=== PATIENT | male | born 1985 | race Caucasian/White ===

== ENCOUNTER 2020-03-20 02:18 | Emergency (ER) | payer BC ==
[2020-03-20] MEDS ORDERED: Ondansetron 4 MG/2 ML SDV IVPUSH ONE (02:56)
[2020-03-20] MEDS ORDERED: Sodium Chloride 0.9% 10 ML Syringe FLUSH PRN (02:56)
[2020-03-20] MEDS ORDERED: Famotidine 20 MG/2 ML SDV IVPUSH ONE (02:56)
--- NOTE | 2020-03-20 02:57 | EDM.PDOC ---
ED HPI GENERAL MEDICAL PROBLEM - General Chief Complaint: Gastrointestinal Problem Stated Complaint: NAUSEA CHILLS DEHYDRATED Time Seen by Provider: 03/20/20 02:36 Source of Information: Reports: Patient, RN Notes Reviewed - History of Present Illness INITIAL COMMENTS - FREE TEXT/NARRATIVE: 34 yr old male with nausea, chills, dry mouth and diarrhea that started about 3 hrs ago. Does not think he ate anything bad. No vomiting. No cough, sore throat or difficulty breathing. - Related Data Allergies Allergy/AdvReac Type Severity Reaction Status Date / Time amoxicillin Allergy Hives Verified 03/20/20 02:27 Home Meds: Home Meds . [No Known Home Meds] 03/20/20 [History] Past Medical History HEENT History: Reports: Allergic Rhinitis Respiratory History: Reports: Asthma Social & Family History - Tobacco Use Tobacco Use Status *Q: Current Every Day Tobacco User Years of Tobacco use: 22 Packs/Tins Daily: 0.5 - Recreational Drug Use Recreational Drug Use: No ED ROS GENERAL - Review of Systems Review Of Systems: See Below Constitutional: Reports: Chills. Denies: Fever HEENT: Denies: Rhinitis, Throat Pain Respiratory: Denies: Shortness of Breath, Cough Cardiovascular: Denies: Chest Pain GI/Abdominal: Reports: Diarrhea, Nausea. Denies: Abdominal Pain, Vomiting Musculoskeletal: Reports: No Symptoms Skin: Reports: No Symptoms Neurological: Reports: Dizziness. Denies: Headache ED EXAM, GI/ABD - Physical Exam Exam: See Below General Appearance: Alert, Anxious Head: Atraumatic Neck: Supple Respiratory/Chest: No Respiratory Distress, Lungs Clear, Normal Breath Sounds Cardiovascular: Regular Rate, Rhythm GI/Abdominal Exam: Soft, Non-Tender. No: Guarding Extremities: Normal Inspection, Normal Range of Motion Neurological: Alert, Oriented, No Motor/Sensory Deficits Psychiatric: Anxious Skin Exam: Warm, Dry, Normal Color, No Rash Course - Vital Signs Last Recorded V/S: Last Vital Signs Temp 98.1 F 03/20/20 02:28 Pulse 69 03/20/20 02:28 Resp 17 03/20/20 02:28 BP 130/76 03/20/20 02:28 Pulse Ox 96 03/20/20 02:28 - Orders/Labs/Meds Orders: Active Orders 24 hr Category Date Time Status Peripheral IV Care [RC] . DIRECTED Care 03/20/20 02:57 Active Sodium Chloride 0.9% [Saline Flush] Med 03/20/20 02:56 Active 10 ml FLUSH ASDIRECTED PRN Peripheral IV Insertion Adult [OM.PC] Stat Oth 03/20/20 02:56 Ordered Medication Orders Sodium Chloride (Saline Flush) 10 ml FLUSH ASDIRECTED PRN PRN Reason: Keep Vein Open Last Admin: 03/20/20 03:27 Dose: 10 ml Documented by: ROLY Labs: Laboratory Tests 03/20/20 03/20/20 03/20/20 Range/Units 03:16 03:45 03:45 WBC 6.90 (4.23-9.07) K/mm3 RBC 4.76 (4.63-6.08) M/mm3 Hgb 14.9 (13.7-17.5) gm/dl Hct 43.0 (40.1-51.0) % MCV 90.3 (79.0-92.2) fl MCH 31.3 (25.7-32.2) pg MCHC 34.7 (32.2-35.5) g/dl RDW Std Deviation 40.2 (35.1-43.9) fL Plt Count 338 H (163-337) K/mm3 MPV 8.6 L (9.4-12.3) fl Neut % (Auto) 70.5 H (34.0-67.9) % Lymph % (Auto) 20.3 L (21.8-53.1) % [place] % (Auto) 7.2 (5.3-12.2) % Eos % (Auto) 1.6 (0.8-7.0) Baso % (Auto) 0.4 (0.1-1.2) % Neut # (Auto) 4.86 (1.78-5.38) K/mm3 Lymph # (Auto) 1.40 (1.32-3.57) K/mm3 [place] # (Auto) 0.50 (0.30-0.82) K/mm3 Eos # (Auto) 0.11 (0.04-0.54) K/mm3 Baso # (Auto) 0.03 (0.01-0.08) K/mm3 Sodium 138 (136-145) mEq/L Potassium 4.0 (3.5-5.1) mEq/L Chloride 102 (98-107) mEq/L Carbon Dioxide 29 (21-32) mEq/L Anion Gap 11.0 (5-15) BUN 5 L (7-18) mg/dL Creatinine 0.9 (0.7-1.3) mg/dL Est Cr Clr Drug Dosing 105.56 mL/min Estimated GFR (MDRD) > 60 (>60) mL/min BUN/Creatinine Ratio 5.6 L (14-18) Glucose 100 (74-106) mg/dL Calcium 9.1 (8.5-10.1) mg/dL Total Bilirubin 0.4 (0.2-1.0) mg/dL AST 15 (15-37) U/L ALT 24 (16-63) U/L Alkaline Phosphatase 86 (46-116) U/L Total Protein 7.3 (6.4-8.2) g/dl Albumin 3.9 (3.4-5.0) g/dl Globulin 3.4 gm/dL Albumin/Globulin Ratio 1.2 (1-2) SARS-CoV-2 RNA (RODY) Negative (NEGATIVE) Meds: Medications Generic Name Dose Route Start Last Admin Trade Name Freq PRN Reason Stop Dose Admin Sodium Chloride 10 ml 03/20/20 02:56 03/20/20 03:27 Saline Flush FLUSH 10 ml ASDIRECTED PRN Administration Keep Vein Open Discontinued Medications Generic Name Dose Route Start Last Admin Trade Name Freq PRN Reason Stop Dose Admin Famotidine 20 mg 03/20/20 02:56 03/20/20 03:27 Pepcid IVPUSH 03/20/20 02:57 20 mg ONETIME ONE Administration Ondansetron HCl 4 mg 03/20/20 02:56 03/20/20 03:26 Zofran IVPUSH 03/20/20 02:57 4 mg ONETIME ONE Administration - Re-Assessments/Exams Free Text/Narrative Re-Assessment/Exam: 03/20/20 04:50. labs did come back normal. Discharge instr. as documented. Departure - Departure Time of Disposition: 04:39 Disposition: Home, Self-Care 01 Condition: Fair Clinical Impression: GERD (gastroesophageal reflux disease) Qualifiers: Esophagitis presence: without esophagitis Qualified Code(s): K21.9 - Gastro- esophageal reflux disease without esophagitis Diarrhea Qualifiers: Diarrhea type: unspecified type Qualified Code(s): R19.7 - Diarrhea, unspecified - Discharge Information Instructions: Diarrhea, Adult, Gastroesophageal Reflux Disease, Adult Referrals: PCP,None [Primary Care Provider] - Forms: ED Department Discharge Additional Instructions: Your covid screen did come back negative. Your blood count and chemistries were normal. Continue prilosec as prescribed. Clear liquids until this afternoon. Than careful bland diet as tolerated. Follow up with your regular provider if not better within 1 to 2 days as expected. Sepsis Event Note (ED) - Evaluation Sepsis Screening Result: No Definite Risk - Focused Exam Vital Signs: Vital Signs Temp Pulse Resp BP Pulse Ox 03/20/20 02:28 98.1 F 69 17 130/76 96 - My Orders Last 24 Hours: My Active Orders 03/20/20 02:56 Sodium Chloride 0.9% [Saline Flush] 10 ml FLUSH ASDIRECTED PRN Peripheral IV Insertion Adult [OM.PC] Stat 03/20/20 02:57 Peripheral IV Care [RC] . DIRECTED - Assessment/Plan Last 24 Hours: My Active Orders 03/20/20 02:56 Sodium Chloride 0.9% [Saline Flush] 10 ml FLUSH ASDIRECTED PRN Peripheral IV Insertion Adult [OM.PC] Stat 03/20/20 02:57 Peripheral IV Care [RC] . DIRECTED
== END 2020-03-20 04:55 | disposition home or self-care (01) ==
LOC: JD.ED 02:18
DX: K21.9 Gastro-esophageal reflux disease without esophagitis (principal); R19.7 Diarrhea, unspecified; Z20.828 Contact with and (suspected) exposure to other viral communicable diseases; J45.909 Unspecified asthma, uncomplicated; F17.210 Nicotine dependence, cigarettes, uncomplicated; Z88.1 Allergy status to other antibiotic agents
CPT/HCPCS: 36415; 80053; 85025; 87635; 96374; 96375; 99284; J2405; J3490; U0002

== ENCOUNTER 2020-08-26 23:40 | Emergency (ER) | payer BC ==
[2020-08-27] MEDS ORDERED: Lactated Ringers 1,000 ML IV ONE (01:07)
[2020-08-27] MEDS ORDERED: Sodium Chloride 0.9% 10 ML Syringe FLUSH PRN ×2 (01:07→02:02)
[2020-08-27] MEDS ORDERED: Prochlorperazine 10 MG in Sodium Chloride 0.9% 50 ML IV ONE (01:07)
--- NOTE | 2020-08-27 01:08 | EDM.PDOC ---
ED HPI GENERAL MEDICAL PROBLEM - General Chief Complaint: General Stated Complaint: SEVERE BLOATING/MUCUS IN THROAT Time Seen by Provider: 08/27/20 00:50 Source of Information: Reports: Patient History Limitations: Reports: No Limitations - History of Present Illness INITIAL COMMENTS - FREE TEXT/NARRATIVE: Patient arrived to ED by private vehicle He came to ED after feeling like he was going to pass out tonight This was associated with symptoms which have been ongoing and progressing for past 6 years Symptoms were initially intermittent, but over the past 2 years have been occurring on a daily basis Describes occurrence of abdominal discomfort and bloating, which precede sensation like mucus or phlegm stuck in throat He experiences dry mouth and feeling of dyspnea in association with the latter He has never expectorated or cleared phlegm or mucus from the throat Symptoms occur predominantly when he is lying down, and when he is driving They do not occur significantly during the day with general activities Eating often causes an increase in the abdominal discomfort When his symptoms are most severe, he often feels like he would pass out This occurs approximately once per week, and he is usually able to get through the episodes He has never actually passed out from these symptoms Tonight that feeling was particularly severe and prompted him to come in for ev aluation He has had previous ED visits in the past for similar severity He denies kvng dysphagia Denies nausea or vomiting Endorses occurrence of watery stools about twice per week 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 pylori infection about 2 years ago and was prescribed combination therapy at that time He relates that he felt somewhat better after completing treatment, though his symptoms never really subsided He was empirically prescribed similar treatment again around 03/2020 but did not get around to taking it until recently He has not had specialist consultation in regards to these symptoms - Related Data Allergies Allergy/AdvReac Type Severity Reaction Status Date / Time amoxicillin Allergy Hives Verified 03/20/20 02:27 Penicillins Allergy Cannot Verified 08/26/20 23:55 Remember Home Meds: Home Meds Clarithromycin 1 tab PO BID 08/26/20 [History] Escitalopram Oxalate 1 tab PO DAILY 08/26/20 [History] Metoprolol Succinate 1 tab PO DAILY 08/26/20 [History] Past Medical History HEENT History: Reports: Allergic Rhinitis Respiratory History: Reports: Asthma Psychiatric History: Reports: Anxiety Social & Family History - Tobacco Use Tobacco Use Status *Q: Former Tobacco User Used Tobacco, but Quit: Yes Month/Year Tobacco Last Used: 2018 - Caffeine Use Caffeine Use: Reports: Soda - Recreational Drug Use Recreational Drug Use: No ED ROS GENERAL - Review of Systems Review Of Systems: See Below Free Text/Narrative/Comment: Constitutional - no fever; no weight change Eyes - no eye pain; no visual disturbance ENT - no rhinorrhea; no congestion; no epistaxis Cardiovascular - no chest pain Respiratory - shortness of breath; no cough Gastrointestinal - abdominal pain; no nausea; no vomiting; diarrhea Genitourinary - no dysuria Musculoskeletal - no neck pain; no back pain; no extremity injury Neurological - no headache; no speech disturbance; no weakness; dizziness ED EXAM, GENERAL - Physical Exam Exam: See Below Free Text/Narrative:: Constitutional - awake; alert; no acute distress Head - no facial swelling or weakness Eyes - extra ocular motion intact; conjunctiva normal; pupils equal and reactive to light ENT - no nasal deformity; no epistaxis; normal phonation; mucus membranes moist; normal oropharynx Neck - no swelling Respiratory - normal respiratory effort; no crackles or wheezing; no stridor Cardiovascular - regular rhythm; normal rate; S1; S2; grade 1/6 systolic murmur GI/Abdomen - normal bowel sounds; soft; mild, generalized tenderness; no rebound; no guarding; no mass Musculoskeletal - grossly normal strength and motion; no swelling or deformity Skin - warm; dry Neurologic - normal speech; no weakness; gait intact Psychiatric - normal mood and affect; memory and attention normal #1 Interpretation EKG Date: 08/27/20 Time: 01:12 Rhythm: NSR Rate (Beats/Min): 79 [place]: Normal P-Wave: Present QRS: Normal ST-T: Other (Mild, nonspecific ST-T wave abnormality) Course - Vital Signs Text/Narrative:: . Considered etiologies included: Abdominal pain, bloating, throat discomfort, GERD, esophagitis, biliary colic, chronic cholecystitis, irritable bowel syndrome, globus, dizziness, near syncope, vasovagal episode Symptoms and examination were discussed Investigations were initiated Empiric treatment for possible irritable bowel syndrome was provided with prochl orperazine and IV fluid infusion At reevaluation he noted no significant change in symptoms Results were discussed, and were unremarkable Consideration for further gallbladder evaluation with ultrasound and/or NM hepatobiliary scan was discussed Gastroenterology and ENT consultation were also recommended Primary care follow-up was advised Patient was felt to be stable for outpatient follow-up Return precautions were provided Last Recorded V/S: Last Vital Signs Temp 36.4 C 08/26/20 23:49 Pulse 84 08/26/20 23:49 Resp 18 08/26/20 23:49 BP 141/91 H 08/26/20 23:49 Pulse Ox 8 L 08/26/20 23:49 - Orders/Labs/Meds Orders: Active Orders 24 hr Category Date Time Status Abdomen Pelvis w Cont [CT] Stat Exams 08/27/20 01:58 Taken Peripheral IV Insertion Adult [OM.PC] Stat Oth 08/27/20 01:06 Ordered EKG 12 Lead [EK] Stat Ther 08/27/20 01:06 Ordered Labs: Laboratory Tests 08/27/20 08/27/20 Range/Units 01:30 01:30 WBC 6.74 (4.23-9.07) K/mm3 RBC 5.01 (4.63-6.08) M/mm3 Hgb 15.6 (13.7-17.5) gm/dl Hct 45.7 (40.1-51.0) % MCV 91.2 (79.0-92.2) fl MCH 31.1 (25.7-32.2) pg MCHC 34.1 (32.2-35.5) g/dl RDW Std Deviation 42.0 (35.1-43.9) fL Plt Count 349 H (163-337) K/mm3 MPV 8.7 L (9.4-12.3) fl Neut % (Auto) 62.5 (34.0-67.9) % Lymph % (Auto) 24.8 (21.8-53.1) % [place] % (Auto) 9.9 (5.3-12.2) % Eos % (Auto) 2.1 (0.8-7.0) Baso % (Auto) 0.6 (0.1-1.2) % Neut # (Auto) 4.21 (1.78-5.38) K/mm3 Lymph # (Auto) 1.67 (1.32-3.57) K/mm3 [place] # (Auto) 0.67 (0.30-0.82) K/mm3 Eos # (Auto) 0.14 (0.04-0.54) K/mm3 Baso # (Auto) 0.04 (0.01-0.08) K/mm3 Sodium 137 (136-145) mEq/L Potassium 3.7 (3.5-5.1) mEq/L Chloride 102 (98-107) mEq/L Carbon Dioxide 27 (21-32) mEq/L Anion Gap 11.7 (5-15) BUN 6 L (7-18) mg/dL Creatinine 0.8 (0.7-1.3) mg/dL Est Cr Clr Drug Dosing 120.86 mL/min Estimated GFR (MDRD) > 60 (>60) mL/min BUN/Creatinine Ratio 7.5 L (14-18) Glucose 98 (74-106) mg/dL Calcium 8.6 (8.5-10.1) mg/dL Total Bilirubin 0.4 (0.2-1.0) mg/dL AST 23 (15-37) U/L ALT 28 (16-63) U/L Alkaline Phosphatase 66 (46-116) U/L Total Protein 7.4 (6.4-8.2) g/dl Albumin 4.0 (3.4-5.0) g/dl Globulin 3.4 gm/dL Albumin/Globulin Ratio 1.2 (1-2) Lipase 126 (73-393) U/L Meds: Medications Discontinued Medications Generic Name Dose Route Start Last Admin Trade Name Freq PRN Reason Stop Dose Admin Lactated Ringer's 1,000 mls @ 999 mls/hr 08/27/20 01:07 08/27/20 01:32 Ringers, Lactated IV 08/27/20 02:07 999 mls/hr .BOLUS ONE Administration Iopamidol 100 ml 08/27/20 02:02 08/27/20 02:21 Iopamidol 612 Mg/Ml 100 Ml Bottle IVPUSH 08/27/20 02:03 100 ml ONETIME ONE Administration Prochlorperazine Edisylate 10 mg 08/27/20 01:30 08/27/20 01:32 Prochlorperazine 10 Mg/2 Ml Sdv IVPUSH 08/27/20 01:31 10 mg ONETIME ONE Administration Sodium Chloride 10 ml 08/27/20 01:07 Sodium Chloride 0.9% 10 Ml Syringe FLUSH ASDIRECTED PRN Keep Vein Open Sodium Chloride 10 ml 08/27/20 02:02 08/27/20 02:22 Sodium Chloride 0.9% 10 Ml Syringe FLUSH 10 ml ONETIME PRN Administration Keep Vein Open - Radiology Interpretation Free Text/Narrative:: CT abdomen/pelvis, IV contrast, preliminary radiology report: Mildly prominent pancreas. Correlate for the possibility of pancreatitis. No other abnormality identified. Departure - Departure Time of Disposition: 03:18 Disposition: Home, Self-Care 01 Condition: Good Clinical Impression: Abdominal pain in male, Near syncope, Throat disorder - Discharge Information Instructions: Near-Syncope, Abdominal Pain, Adult Referrals: PCP,None [Primary Care Provider] - Forms: ED Department Discharge Additional Instructions: Return if condition worsens May resume general activity and regular diet as tolerated Continue usual medications Follow-up with primary care provider is recommended in 3 to 5 days Gastroenterology and ENT consultation are also recommended Call [facility] ([phone]) or [facility] ([phone]) to arrange consultation with specialists Sepsis Event Note (ED) - Evaluation Sepsis Screening Result: No Definite Risk - Focused Exam Vital Signs: Vital Signs Temp Pulse Resp BP Pulse Ox 08/26/20 23:49 36.4 C 84 18 141/91 H 8 L - My Orders Last 24 Hours: My Active Orders 08/27/20 01:06 Peripheral IV Insertion Adult [OM.PC] Stat EKG 12 Lead [EK] Stat 08/27/20 01:58 Abdomen Pelvis w Cont [CT] Stat - Assessment/Plan Last 24 Hours: My Active Orders 08/27/20 01:06 Peripheral IV Insertion Adult [OM.PC] Stat EKG 12 Lead [EK] Stat 08/27/20 01:58 Abdomen Pelvis w Cont [CT] Stat
[2020-08-27] MEDS ORDERED: Prochlorperazine 10 MG/2 ML SDV IVPUSH ONE (01:30)
[2020-08-27] MEDS ORDERED: Iopamidol 612 MG/ML 100 ML Bottle IVPUSH ONE (02:02)
--- NOTE | 2020-08-27 08:13 | CT ---
CT abdomen and pelvis Technique: Multiple axial images were obtained from above the dome of the diaphragm inferiorly to the pubic symphysis. Intravenous contrast was utilized. No oral contrast has been given. Delayed images were obtained to the bladder. Reconstructed coronal and sagittal images were also obtained. Comparison: No previous abdominal and/or pelvic imaging is available. Findings: Visualized lung bases show nothing acute. Liver contains no focal parenchymal abnormality. Spleen appears normal. Adrenal glands show no nodule. Pancreas shows no mass. I do not see any definite inflammatory change to indicate pancreatitis. Gallbladder contains no calcified gallstones. Kidneys show symmetric contrast enhancement without hydronephrosis or mass. Abdominal aorta shows no aneurysm. No retroperitoneal adenopathy or mesenteric abnormalities are seen. No pelvic mass or adenopathy is identified. Appendix is not definitely visualized. Bone window settings were reviewed which show no acute osseous abnormality. Delayed images show contrast within the bladder and within the ureters. Impression: 1. Pancreas, in my opinion, appears to be within normal limits with no definite findings of pancreatitis as noted in the preliminary report by Linda. 2. Nothing acute is appreciated on CT study of the abdomen and pelvis. Diagnostic code #1 Slightly disagree with preliminary report from Linda, finalized on 08/27/20, 3:32 AM CDT, code 2
== END 2020-08-27 03:33 | disposition home or self-care (01) ==
LOC: JD.ED 23:40
DX: R10.9 Unspecified abdominal pain (principal); R10.817 Generalized abdominal tenderness; R55 Syncope and collapse; J39.2 Other diseases of pharynx; Z88.0 Allergy status to penicillin
CPT/HCPCS: 36415; 74177; 80053; 83690; 85025; 93005; 96374; 99284; J0780; J7120; Q9967

== ENCOUNTER 2021-04-03 18:34 | Emergency (ER) | payer BC ==
[2021-04-03] MEDS ORDERED: Sodium Chloride 0.9% 10 ML Syringe FLUSH PRN (19:25)
[2021-04-03] MEDS ORDERED: Alum Hydrox/Mag Hydrox/Simeth 30 ML, Lidocaine 2% 15 ML PO ONE ×2 (19:26)
[2021-04-03] MEDS ORDERED: Famotidine 20 MG/2 ML SDV IVPUSH ONE (19:27)
--- NOTE | 2021-04-03 20:17 | CT ---
CT neck Technique: Multiple axial sections were obtained from above the external auditory canals inferiorly to the lung apices. Reconstructed coronal and axial images were obtained. Intravenous contrast was utilized. Comparison: No prior CT neck study is available. Findings: Visualized lung apices are clear. Thyroid gland shows no abnormality. Parotid salivary glands and submandibular salivary glands appear within normal limits. There is no adenopathy being seen within the neck. Mild mucosal thickening is seen within the ethmoid sinuses and within the frontal sinuses with minimal mucosal thickening seen within the sphenoid sinus. Parapharyngeal soft tissues are symmetric between right and left sides. There is no prevertebral soft tissue swelling noted. Epiglottis appears within normal limits. Bone window settings were obtained which show no acute osseous finding. Impression: 1. Mild chronic appearing sinusitis is seen. 2. Nothing acute is otherwise seen on CT study of the neck. Diagnostic code #2
--- NOTE | 2021-04-03 20:18 | CR ---
Chest: PA and lateral views of the chest were obtained. Comparison: No prior chest imaging is available. Heart size and mediastinum are within normal limits. Lungs are clear with no acute parenchymal change. Bony structures show nothing acute. Impression: 1. Nothing acute is seen on 2-view chest x-ray. Diagnostic code #1
--- NOTE | 2021-04-03 20:49 | EDM.PDOC ---
ED HPI GENERAL MEDICAL PROBLEM - General Chief Complaint: Gastrointestinal Problem Stated Complaint: DIFFICULTY SWALLOWING Time Seen by Provider: 04/03/21 19:00 Source of Information: Reports: Patient History Limitations: Reports: No Limitations - History of Present Illness INITIAL COMMENTS - FREE TEXT/NARRATIVE: The patient presents with trouble swallowing. This has been going on for months. This started back in August. The patient would get bloating and upper abdominal pain and then have reflux into his esophagus. He had an an US back in August that looked good. He had a barium swallow test. He had a test for acid and that was borderline. He had an EGD that looked good. He is on prilosec, pepcid, carafate and over the counter medications. He is scheduled to go to GI on the 23 of April. He said today he ate at a gas station and felt bloated and had upper abdominal pain. He then had acid reflux and now trouble swallowing. He took an extra prilosec and that did not help. He does get nauseated at times. He also noticed the left side of his rib cage is out more then the left side. He has no tenderness there and no injury is noted. Onset: Gradual Duration: Hour(s): Location: Reports: Abdomen Quality: Reports: Burning Severity: Moderate Improves with: Reports: None Worsens with: Reports: None Throat Pain Score (Numeric/FACES): 5 - Related Data Allergies Allergy/AdvReac Type Severity Reaction Status Date / Time amoxicillin Allergy Hives Verified 04/03/21 18:57 Penicillins Allergy Cannot Verified 04/03/21 18:57 Remember Home Meds: Home Meds Escitalopram Oxalate 1 tab PO DAILY 08/26/20 [History] Metoclopramide HCl [Reglan] 10 mg PO Q6H PRN #30 tablet 04/03/21 [Rx] Omeprazole 04/03/21 [History] Pantoprazole [ProTONIX] 04/03/21 [History] Past Medical History HEENT History: Reports: Allergic Rhinitis Respiratory History: Reports: Asthma Gastrointestinal History: Reports: Helicobacter Pylori Psychiatric History: Reports: Anxiety - Past Surgical History GI Surgical History: Reports: EGD Social & Family History - Tobacco Use Tobacco Use Status *Q: Former Tobacco User Used Tobacco, but Quit: Yes Month/Year Tobacco Last Used: 0 - Caffeine Use Caffeine Use: Reports: Soda ED ROS GENERAL - Review of Systems Review Of Systems: See Below Constitutional: Reports: No Symptoms HEENT: Reports: No Symptoms Respiratory: Reports: No Symptoms Cardiovascular: Reports: No Symptoms Endocrine: Reports: No Symptoms GI/Abdominal: Reports: Abdominal Pain. Denies: Diarrhea, Nausea, Vomiting : Reports: No Symptoms ED EXAM, GI/ABD - Physical Exam Exam: See Below Exam Limited By: No Limitations General Appearance: Alert, No Apparent Distress Ears: Normal External Exam Nose: Normal Inspection Throat/Mouth: Normal Inspection Head: Atraumatic, Normocephalic Neck: Normal Inspection, Supple, Non-Tender Respiratory/Chest: No Respiratory Distress, Lungs Clear, Normal Breath Sounds Cardiovascular: Regular Rate, Rhythm, No Edema, No Murmur GI/Abdominal Exam: Soft, No Organomegaly, Tender (Mild epigastric tenderness) Course - Vital Signs Last Recorded V/S: Last Vital Signs Temp 98.5 F 04/03/21 19:03 Pulse 89 04/03/21 19:03 Resp 18 04/03/21 19:03 BP 137/86 04/03/21 19:03 Pulse Ox 100 04/03/21 19:03 - Orders/Labs/Meds Orders: Active Orders 24 hr Category Date Time Status Peripheral IV Care [RC] . DIRECTED Care 04/03/21 19:26 Active Sodium Chloride 0.9% [Saline Flush] Med 04/03/21 19:25 Active 10 ml FLUSH ASDIRECTED PRN Peripheral IV Insertion Adult [OM.PC] Stat Oth 04/03/21 19:25 Ordered Medication Orders Sodium Chloride (Sodium Chloride 0.9% 10 Ml Syringe) 10 ml FLUSH ASDIRECTED PRN PRN Reason: Keep Vein Open Last Admin: 04/03/21 19:36 Dose: 10 ml Documented by: TIERNEY Labs: Laboratory Tests 04/03/21 04/03/21 Range/Units 19:35 19:35 WBC 9.89 H (4.23-9.07) K/mm3 RBC 5.09 (4.63-6.08) M/mm3 Hgb 15.5 (13.7-17.5) gm/dl Hct 46.4 (40.1-51.0) % MCV 91.2 (79.0-92.2) fl MCH 30.5 (25.7-32.2) pg MCHC 33.4 (32.2-35.5) g/dl RDW Std Deviation 41.8 (35.1-43.9) fL Plt Count 357 H (163-337) K/mm3 MPV 8.3 L (9.4-12.3) fl Neut % (Auto) 70.6 H (34.0-67.9) % Lymph % (Auto) 21.8 (21.8-53.1) % [place] % (Auto) 5.0 L (5.3-12.2) % Eos % (Auto) 2.1 (0.8-7.0) Baso % (Auto) 0.4 (0.1-1.2) % Neut # (Auto) 6.98 H (1.78-5.38) K/mm3 Lymph # (Auto) 2.16 (1.32-3.57) K/mm3 [place] # (Auto) 0.49 (0.30-0.82) K/mm3 Eos # (Auto) 0.21 (0.04-0.54) K/mm3 Baso # (Auto) 0.04 (0.01-0.08) K/mm3 Sodium 141 (136-145) mEq/L Potassium 4.2 (3.5-5.1) mEq/L Chloride 102 (98-107) mEq/L Carbon Dioxide 31 (21-32) mEq/L Anion Gap 12.2 (5-15) BUN 12 (7-18) mg/dL Creatinine 0.9 (0.7-1.3) mg/dL Est Cr Clr Drug Dosing 108.15 mL/min Estimated GFR (MDRD) > 60 (>60) mL/min BUN/Creatinine Ratio 13.3 L (14-18) Glucose 95 (70-99) mg/dL Calcium 9.4 (8.5-10.1) mg/dL Total Bilirubin 0.4 (0.2-1.0) mg/dL AST 24 (15-37) U/L ALT 50 (16-63) U/L Alkaline Phosphatase 97 (46-116) U/L Total Protein 7.3 (6.4-8.2) g/dl Albumin 4.1 (3.4-5.0) g/dl Globulin 3.2 gm/dL Albumin/Globulin Ratio 1.3 (1-2) Lipase 120 (73-393) U/L Meds: Medications Generic Name Dose Route Start Last Admin Trade Name Freq PRN Reason Stop Dose Admin Sodium Chloride 10 ml 04/03/21 19:25 04/03/21 19:36 Sodium Chloride 0.9% 10 Ml Syringe FLUSH 10 ml ASDIRECTED PRN Administration Keep Vein Open Discontinued Medications Generic Name Dose Route Start Last Admin Trade Name Freq PRN Reason Stop Dose Admin Al Hydroxide/Mg Hydroxide 30 0 ml 04/03/21 19:26 04/03/21 19:36 ml/ Lidocaine HCl 15 ml PO 04/03/21 19:27 45 ml ONETIME ONE Administration Famotidine 20 mg 04/03/21 19:27 04/03/21 19:41 Famotidine 20 Mg/2 Ml Sdv IVPUSH 04/03/21 19:28 20 mg ONETIME ONE Administration - Re-Assessments/Exams Free Text/Narrative Re-Assessment/Exam: 04/03/21 20:50 I ordered an IV saline lock, labs, CXR and a CT of his neck. His CXR looks good. His CT shows nothing acute and his labs look good. This has affected his life for months. He is unable to get answers and he is frustrated. I will have him keep taking his prilosec and pepcid and I will try him on reglan. I will also order an US and HIDA scan and refer him to Dr Velasquez. Departure - Departure Time of Disposition: 20:55 Disposition: Home, Self-Care 01 Condition: Good Clinical Impression: GERD (gastroesophageal reflux disease) Qualifiers: Esophagitis presence: without esophagitis Qualified Code(s): K21.9 - Gastro-es ophageal reflux disease without esophagitis - Discharge Information *PRESCRIPTION DRUG MONITORING PROGRAM REVIEWED*: Not Applicable *COPY OF PRESCRIPTION DRUG MONITORING REPORT IN PATIENT JANES: Not Applicable Prescriptions: Metoclopramide HCl [Reglan] 10 mg PO Q6H PRN #30 tablet PRN Reason: Nausea Referrals: Mala Gonzalez MGMT SPECIALIST [Primary Care Provider] - Ras Velasquez MD [Physician] - 1 Week Additional Instructions: Keep taking your medications as prescribed. Try taking the reglan every 6 hours as needed for any nausea. Drink plenty of fluids like water, powerade or gatorade. I have ordered an ultrasound of your gallbladder and HIDA scan to look at the functioning of the gallbladder. Someone from our radiology department will call you. Call Dr Velasquez's office to schedule a follow up appointment. Please return if you are worse. Sepsis Event Note (ED) - Evaluation Sepsis Screening Result: No Definite Risk - Focused Exam Vital Signs: Vital Signs Temp Pulse Resp BP Pulse Ox 04/03/21 19:03 98.5 F 89 18 137/86 100 - My Orders Last 24 Hours: My Active Orders 04/03/21 19:25 Sodium Chloride 0.9% [Saline Flush] 10 ml FLUSH ASDIRECTED PRN Peripheral IV Insertion Adult [OM.PC] Stat 04/03/21 19:26 Peripheral IV Care [RC] . DIRECTED - Assessment/Plan Last 24 Hours: My Active Orders 04/03/21 19:25 Sodium Chloride 0.9% [Saline Flush] 10 ml FLUSH ASDIRECTED PRN Peripheral IV Insertion Adult [OM.PC] Stat 04/03/21 19:26 Peripheral IV Care [RC] . DIRECTED
== END 2021-04-03 21:14 | disposition home or self-care (01) ==
LOC: JD.ED 18:34
DX: K21.9 Gastro-esophageal reflux disease without esophagitis (principal); Z88.0 Allergy status to penicillin; Z79.899 Other long term (current) drug therapy; Z87.891 Personal history of nicotine dependence
CPT/HCPCS: 36415; 70491; 71046; 80053; 83690; 85025; 96374; 99284; A9270; J3490

== ENCOUNTER 2021-04-07 08:58 | Emergency (ER) | payer BC ==
--- NOTE | 2021-04-07 11:33 | US ---
Limited abdominal ultrasound: Multiple real-time images of the upper right abdomen were obtained. Comparison: Prior CT abdomen and pelvis study of 08/27/20. Findings: Liver shows no focal parenchymal abnormality. Gallbladder contains no shadowing gallstones. No gallbladder wall thickening or biliary duct dilatation is seen. Right kidney shows no hydronephrosis or mass. Right kidney has a length of 10.4 cm. Proximal aorta is obscured by bowel gas. Pancreas is also obscured by bowel gas. Inferior vena cava is not seen. Main portal vein shows normal hepatopedal flow. Impression: 1. Bowel gas which obscures the upper abdominal aorta as well as pancreas. 2. Other portions of the right upper quadrant abdominal ultrasound appear within normal limits. Diagnostic code #2
--- NOTE | 2021-04-07 12:30 | EDM.PDOC ---
ED HPI GENERAL MEDICAL PROBLEM - General Chief Complaint: Gastrointestinal Problem Stated Complaint: ABDOMINAL PAIN SOB Time Seen by Provider: 04/07/21 10:11 Source of Information: Reports: Patient History Limitations: Reports: No Limitations - History of Present Illness INITIAL COMMENTS - FREE TEXT/NARRATIVE: The patient returns for trouble swallowing, upper abdominal pain, nausea and vomiting. This has been an ongoing problems for about 6 months[address] He had a CT scan done, US of his abdomen done, labs, and EGD. No real cause was found. He continues to have symptoms and it affects his life. He was here 4 days ago. I did labs and a CT of his neck. There was nothing abnormal with that. I scheduled outpatient US and HIDA scan. He is still having symptoms so he came b k. Onset: Gradual Duration: Week(s): Location: Reports: Abdomen Quality: Reports: Burning, Sharp Severity: Moderate Improves with: Reports: None Worsens with: Reports: None Associated Symptoms: Reports: Nausea/Vomiting. Denies: Chest Pain, Cough, Fever/Chills, Headaches, Shortness of Breath Abdomen Pain Score (Numeric/FACES): 5 - Related Data Allergies Allergy/AdvReac Type Severity Reaction Status Date / Time amoxicillin Allergy Hives Verified 04/03/21 18:57 Penicillins Allergy Cannot Verified 04/03/21 18:57 Remember Home Meds: Home Meds Escitalopram Oxalate 1 tab PO DAILY 08/26/20 [History] Metoclopramide HCl [Reglan] 10 mg PO Q6H PRN #20 tablet 04/03/21 [Rx] Metoclopramide HCl [Reglan] 10 mg PO Q6H PRN #30 tablet 04/03/21 [Rx] Omeprazole 04/03/21 [History] Pantoprazole [ProTONIX] 04/03/21 [History] Past Medical History HEENT History: Reports: Allergic Rhinitis Respiratory History: Reports: Asthma Gastrointestinal History: Reports: Helicobacter Pylori Psychiatric History: Reports: Anxiety - Past Surgical History GI Surgical History: Reports: EGD Social & Family History - Family History GI: Reports: Cholelithiasis - Tobacco Use Tobacco Use Status *Q: Never Tobacco User Second Hand Smoke Exposure: No - Caffeine Use Caffeine Use: Reports: None - Recreational Drug Use Recreational Drug Use: No ED ROS GENERAL - Review of Systems Review Of Systems: See Below Constitutional: Reports: No Symptoms HEENT: Reports: No Symptoms Respiratory: Reports: No Symptoms Cardiovascular: Reports: No Symptoms Endocrine: Reports: No Symptoms GI/Abdominal: Reports: Abdominal Pain, Nausea. Denies: Diarrhea, Vomiting : Reports: No Symptoms Musculoskeletal: Reports: No Symptoms ED EXAM, GI/ABD - Physical Exam Exam: See Below Exam Limited By: No Limitations General Appearance: Alert, No Apparent Distress Ears: Normal External Exam Nose: Normal Inspection Head: Atraumatic, Normocephalic Neck: Normal Inspection Respiratory/Chest: No Respiratory Distress, Lungs Clear, Normal Breath Sounds Cardiovascular: Regular Rate, Rhythm, No Edema, No Murmur GI/Abdominal Exam: Soft, No Organomegaly, No Mass, Tender (Mild tenderness to the epigastric and RUQ) Course - Vital Signs Last Recorded V/S: Last Vital Signs Temp 98.4 F 04/07/21 10:11 Pulse 81 04/07/21 10:11 Resp 16 04/07/21 10:11 BP 122/90 04/07/21 10:11 Pulse Ox 100 04/07/21 10:11 - Orders/Labs/Meds Labs: Laboratory Tests 04/07/21 04/07/21 Range/Units 10:39 10:39 WBC 5.94 (4.23-9.07) K/mm3 RBC 5.27 (4.63-6.08) M/mm3 Hgb 15.9 (13.7-17.5) gm/dl Hct 48.1 (40.1-51.0) % MCV 91.3 (79.0-92.2) fl MCH 30.2 (25.7-32.2) pg MCHC 33.1 (32.2-35.5) g/dl RDW Std Deviation 41.5 (35.1-43.9) fL Plt Count 368 H (163-337) K/mm3 MPV 8.3 L (9.4-12.3) fl Neut % (Auto) 66.2 (34.0-67.9) % Lymph % (Auto) 24.2 (21.8-53.1) % [place] % (Auto) 6.7 (5.3-12.2) % Eos % (Auto) 2.2 (0.8-7.0) Baso % (Auto) 0.5 (0.1-1.2) % Neut # (Auto) 3.93 (1.78-5.38) K/mm3 Lymph # (Auto) 1.44 (1.32-3.57) K/mm3 [place] # (Auto) 0.40 (0.30-0.82) K/mm3 Eos # (Auto) 0.13 (0.04-0.54) K/mm3 Baso # (Auto) 0.03 (0.01-0.08) K/mm3 Sodium 143 (136-145) mEq/L Potassium 4.3 (3.5-5.1) mEq/L Chloride 104 (98-107) mEq/L Carbon Dioxide 30 (21-32) mEq/L Anion Gap 13.3 (5-15) BUN 10 (7-18) mg/dL Creatinine 0.9 (0.7-1.3) mg/dL Est Cr Clr Drug Dosing 112.26 mL/min Estimated GFR (MDRD) > 60 (>60) mL/min BUN/Creatinine Ratio 11.1 L (14-18) Glucose 97 (70-99) mg/dL Calcium 8.5 (8.5-10.1) mg/dL Total Bilirubin 0.2 (0.2-1.0) mg/dL AST 26 (15-37) U/L ALT 51 (16-63) U/L Alkaline Phosphatase 100 (46-116) U/L Total Protein 8.2 (6.4-8.2) g/dl Albumin 4.3 (3.4-5.0) g/dl Globulin 3.9 gm/dL Albumin/Globulin Ratio 1.1 (1-2) Lipase 132 (73-393) U/L - Re-Assessments/Exams Free Text/Narrative Re-Assessment/Exam: 04/07/21 12:35 I ordered labs and and US of his RUQ. His CBC and CMP look good. His lipase was normal. His US shows nothing acute. I called Dr Velasquez's office and they can see him at 3pm on Wednesday. Hopefully the HIDA scan will be done. The patient is convinced this is his gallbladder. He had 6 close family members with gallbladder removed. Departure - Departure Time of Disposition: 12:30 Disposition: Home, Self-Care 01 Condition: Good Clinical Impression: Abdominal pain in male GERD (gastroesophageal reflux disease) Qualifiers: Esophagitis presence: without esophagitis Qualified Code(s): K21.9 - Gastro- esophageal reflux disease without esophagitis - Discharge Information *PRESCRIPTION DRUG MONITORING PROGRAM REVIEWED*: Not Applicable *COPY OF PRESCRIPTION DRUG MONITORING REPORT IN PATIENT JANES: Not Applicable Referrals: PCP,Not In Area [Primary Care Provider] - Ras Velasquez MD [Physician] - Forms: ED Department Discharge Additional Instructions: Keep taking your medications as prescribed. Drink plenty of fluids. Avoid any spicy or heavy foods. Get the HIDA scan done on Wednesday. Dr Velasquez can see your at 3pm. Come early about 2:40 to fill out some paperwork. Please return if you are worse. Sepsis Event Note (ED) - Evaluation Sepsis Screening Result: No Definite Risk - Focused Exam Vital Signs: Vital Signs Temp Pulse Resp BP Pulse Ox 04/07/21 10:11 98.4 F 81 16 122/90 100
== END 2021-04-07 12:47 | disposition home or self-care (01) ==
LOC: JD.ED 08:58
DX: K21.9 Gastro-esophageal reflux disease without esophagitis (principal); J45.909 Unspecified asthma, uncomplicated; Z88.0 Allergy status to penicillin; Z79.899 Other long term (current) drug therapy
CPT/HCPCS: 36415; 76705; 76705-26; 80053; 83690; 85025; 99284-25

== ENCOUNTER 2021-04-15 06:38 | Observation (INO) | payer BC ==
[~2021-04-15 06:38] MED LIST: Lactated Ringers 1,000 ML IV SCH; Lidocaine 1%/Sod Bicarbonate in NS 8.4% 1 ML Syringe IDERM PRN
--- NOTE | 2021-04-15 07:13 | PCM.PREANE ---
Preanesthetic Assessment - Procedure Proposed Procedure: Laparoscopic Hiatal hernia repair - Review of Systems General: No Symptoms Pulmonary: No Symptoms Cardiovascular: No Symptoms Gastrointestinal: No Symptoms Neurological: No Symptoms Other: Reports: None - Physical Assessment NPO Status Date: 04/14/21 NPO Status Time: 20:30 Vital Signs: Last Vital Signs Temp 98.1 F 04/15/21 06:35 Pulse 84 04/15/21 06:35 Resp 16 04/15/21 06:35 BP 126/81 04/15/21 06:35 Pulse Ox 98 04/15/21 06:35 Height: 1.75 m Weight: 70.307 kg ASA Class: 2 Mental Status: Alert & Oriented x3 Airway Class: Mallampati = 2 Dentition: Reports: Normal Dentition, [place](s) Thyro-Mental Finger Breadths: 3 Mouth Opening Finger Breadths: 3 ROM/Head Extension: Full Lungs: Clear to Auscultation, Normal Respiratory Effort Cardiovascular: Regular Rate, Regular Rhythm - Allergies Allergies/Adverse Reactions: Allergies Allergy/AdvReac Type Severity Reaction Status Date / Time amoxicillin Allergy Hives Verified 04/15/21 06:57 Penicillins Allergy Cannot Verified 04/15/21 06:57 Remember - Acknowledgements Anesthesia Type Planned: General Anesthesia Pt an Appropriate Candidate for the Planned Anesthesia: Yes Alternatives and Risks of Anesthesia Discussed w Pt/Guardian: Yes Pt/Guardian Understands and Agrees with Anesthesia Plan: Yes PreAnesthesia Questionnaire HEENT History: Reports: Allergic Rhinitis Respiratory History: Reports: Asthma Gastrointestinal History: Reports: Helicobacter Pylori Psychiatric History: Reports: Anxiety - Past Surgical History GI Surgical History: Reports: EGD - HOME MEDS Home Medications: Home Meds Escitalopram Oxalate 1 tab PO DAILY 08/26/20 [History] Metoclopramide HCl [Reglan] 10 mg PO Q6H PRN #20 tablet 04/03/21 [Rx] Metoclopramide HCl [Reglan] 10 mg PO Q6H PRN #30 tablet 04/03/21 [Rx] Omeprazole 04/03/21 [History] Pantoprazole [ProTONIX] 04/03/21 [History] - CURRENT (IN HOUSE) MEDS Current Meds: Current Medications Lactated Ringer's (Ringers, Lactated) 1,000 mls @ 125 mls/hr IV ASDIRECTED BINU Stop: 04/15/21 23:00 Last Admin: 04/15/21 06:45 Dose: 125 mls/hr Documented by: Lidocaine/Sodium Bicarbonate (Lidocaine 1%/Sod Bicarbonate In Ns 8.4% 1 Ml Syringe) 0.25 ml IDERM ONETIME PRN PRN Reason: Prior to IV Start Stop: 04/15/21 23:00 Sodium Chloride (Sodium Chloride 0.9% 10 Ml Syringe) 10 ml FLUSH 0900,2100 BINU Stop: 04/15/21 23:00
[2021-04-15] MEDS ORDERED: Bupivacaine 0.5% 30 ML SDV ONE (07:17)
[2021-04-15] MEDS ORDERED: Lidocaine 1% 4 ML ONE (07:30)
[2021-04-15] MEDS ORDERED: Ondansetron 4 MG/2 ML SDV ONE (07:30)
[2021-04-15] MEDS ORDERED: Succinylcholine/Sod PF 100 MG/5 ML SYRINGE IV ONE (07:30)
[2021-04-15] MEDS ORDERED: Propofol 200 MG/20 ML SDV ONE (07:30)
[2021-04-15] MEDS ORDERED: fentaNYL 250 MCG/5 ML SDV ONE (07:31)
[2021-04-15] MEDS ORDERED: Midazolam 1 MG/ML 2 ML SDV ONE (07:31)
[2021-04-15] MEDS ORDERED: Lactated Ringers 1,000 ML ONE ×2 (07:54→10:10)
[2021-04-15] MEDS ORDERED: ceFAZolin 1 GM Vial ONE (08:12)
[2021-04-15] MEDS ORDERED: Dexamethasone 4 MG/ML 5 ML MDV ONE (08:28)
[2021-04-15] MEDS ORDERED: HYDROmorphone 0.5 MG/0.5 ML Syringe IVPUSH PRN (09:10)
[2021-04-15] MEDS ORDERED: fentaNYL 100 MCG/2 ML SDV IVPUSH PRN (09:10)
[2021-04-15] MEDS ORDERED: Morphine 2 MG/ML SYRINGE IVPUSH PRN (10:53)
[2021-04-15] MEDS ORDERED: Acetaminophen 325 MG Tab PO SCH (11:00)
[2021-04-15] MEDS ORDERED: Heparin Sodium 5,000 Units/ML Vial SUBCUT SCH (11:00)
--- NOTE | 2021-04-15 11:11 | PCM.POSTAN ---
POST ANESTHESIA ASSESSMENT - MENTAL STATUS Mental Status: Somnolent - VITAL SIGNS Vital Signs: Last Vital Signs Temp 97.3 F 04/15/21 10:58 Pulse 81 04/15/21 10:58 Resp 14 04/15/21 10:58 BP 101/61 04/15/21 10:58 Pulse Ox 98 04/15/21 10:58 - RESPIRATORY Respiratory Status: Respiratory Rate WNL, Airway Patent, O2 Saturation Stable, Supplemental Oxygen - CARDIOVASCULAR CV Status: Pulse Rate WNL, Blood Pressure Stable - GASTROINTESTINAL GI Status: No Symptoms - PAIN Pain Score: 2 - POST OP HYDRATION Hydration Status: Adequate & Stable
--- NOTE | 2021-04-15 11:37 | PCM.PRNOTE ---
- Free Text/Narrative Note: Date: 04/15/2021 Operation: laparoscopic hiatal hernia repair and endoscopic partial fundoplication Indication: medically refractory GERD confirmed with pH monitoring Surgeon: Ras Velasquez MD Findings: small hiatal hernia Detailed Report: The patient was taken to the operating room and placed on the table in supine position. Timeout was performed and general endotracheal anesthesia was initiated. A Lozano catheter was placed. First, diagnostic upper endoscopy was performed. The stomach and esophagus appeared relatively normal. On retroflexion within the stomach, small sliding hiatal hernia was appreciated. There was no significant gross esophagitis. Air was suctioned from the stomach prior to withdrawal of the scope. Next, the patient was positioned in low lithotomy position. The abdomen was prepped and draped in usual sterile fashion. A Veress needle was placed in the left upper quadrant in order to establish pneumoperitoneum. Once pressure reached 15 mmHg, air was aspirated at a site just superior and to the left of the umbilicus. A 12 mm bladed trocar was inserted at this site. A 10 mm 30 degree laparoscope was inserted into the abdomen and contents were inspected. There was no apparent injury from Veress needle placement and the needle was removed. A 5 mm port was placed at the left lateral abdomen just anterior to the viscera at the subcostal margin. A 12 mm bladed trocar was placed along this line at the right upper quadrant for the surgeon's right hand. A 12 mm bladed trocar was inserted at the right lateral mid abdomen for the liver retractor. Finally, a 5 mm bladed trocar was inserted at the right upper abdomen for the surgeon's left hand. Liver retractor was set up in the left lobe of the liver was retracted anteriorly exposing the hiatus. A small hiatal hernia was evident. The teacher's assistant standing on the patient's left side grasped with the proximal greater curvature and retracted inferiorly and laterally. The patient was positioned in steep Trendelenburg. Dissection commenced at the medial aspect of the GE junction. Blunt dissection was carried out the right pillar of the patel from the esophagus. This dissection was carried anteriorly in circumferential fashion, the phrenoesophageal ligament. This was continued until the posterior lateral aspect of the hiatus. Next, the greater omentum was divided off the proximal greater curvature using a [place] LigaSure. This dissection was carried up to the angle of Hiss. Short gastric vessels were divided with the [place] LigaSure. Ligamentous attachments of the posterior stomach to the retroperitoneum were divided. With good mobilization, the line of dissection met up with previous hiatal dissection. Next, a grasper was passed from medial to lateral posterior to the esophagus. The anatomy was very well delineated and dissection was easy. A Thorndike drain was passed around the GE junction and secured with an Endoloop. The Thorndike was used by the teacher's assistant for retraction throughout the remainder of the case. With inferolateral retraction on the distal esophagus, dissection was carried up into the mediastinum. The esophagus was well mobilized circumferentially well up into the mediastinum, and there was ample esophageal length within the abdomen at the conclusion of dissection. 3 interrupted 0 Ethibond sutures with pledgets were placed posteriorly to close the hiatus, with a little bit of space around the esophagus. With closure looking good, the laparoscopic portion of the case was concluded. 12 mm port sites were closed at the level of fascia with 0 Vicryl using laparoscopic suture passer. Smaller ports were removed under laparoscopic visualization and hemostasis was satisfactory. Pneumoperitoneum was released. All incisions were closed with running subcuticular Vicryl suture and dressed with Dermabond. A total of 30 cc 0.5% Marcaine was used for local anesthetic throughout the case. Next, the patient was repositioned in supine orientation and the Esophy-X endoscopic device was set up. The device was passed through the esophagus into the stomach over the endoscope. An endoscopic partial fundoplication was created using the device, bringing gastric tissue near the GE junction from the greater curvature around the base of the esophagus medially and laterally, securing it with the devices fixation apparatus. After completion, there appeared to be a good partial fundoplication with a few centimeters of wrap distal esophagus. The device was removed, and the endoscope was inserted back into the stomach to desufflate and suctioned a small amount of blood in the fundus. The scope was withdrawn. The patient tolerated the procedure well.
[2021-04-15] MEDS: Sodium Chloride 0.9% 10 ML Syringe FLUSH SCH (13:03)
[2021-04-15] MEDS: Acetaminophen 325 MG Tab PO SCH ×2 (13:14→21:26)
[2021-04-15] MEDS: Heparin Sodium 5,000 Units/ML Vial SUBCUT SCH ×2 (13:14→21:28)
[2021-04-15] MEDS: oxyCODONE 5 MG Tab PO PRN ×3 (13:25→21:27)
[2021-04-15] MEDS: Lactated Ringers 1,000 ML IV SCH ×2 (13:26→23:41)
[2021-04-16] MEDS: oxyCODONE 5 MG Tab PO PRN ×4 (02:23→14:28)
[2021-04-16] MEDS: Acetaminophen 325 MG Tab PO SCH ×2 (06:06→12:17)
[2021-04-16] MEDS: Heparin Sodium 5,000 Units/ML Vial SUBCUT SCH ×2 (06:06→12:18)
[2021-04-16] MEDS ORDERED: Citalopram 10 MG Tab PO SCH (09:00)
[2021-04-16] MEDS ORDERED: Benzocaine/Cetylpyridinium/Menthol Lozenge MUCMEM PRN (09:23)
[2021-04-16] MEDS ORDERED: Phenol 1.4% Oral Spray 177 ML Bottle MUCMEM PRN (09:23)
[2021-04-16] MEDS ORDERED: Ondansetron 4 MG Tab.DIS PO PRN (09:24)
[2021-04-16] MEDS ORDERED: Simethicone 80 MG Tab.Chew PO PRN (09:25)
[2021-04-16] MEDS ORDERED: Polyethylene Glycol 3350 Powder 17 GM Packet PO ONE (12:15)
[2021-04-16] MEDS ORDERED: Docusate Sodium 100 MG Cap PO ONE (12:15)
--- NOTE | 2021-04-16 12:20 | PCM.DCSUM1 ---
Discharge Summary - Hospital Course Free Text/Narrative:: admitted 04/15 for elective laparoscopic hiatal hernia repair and intragastric fundoplication. Operation completed without complication. The patient was kept overnight and did well, tolerating a clear liquid diet. Pain was manageable, post-op labs looked good, and the patient was able to void after hammer removal. He was deemed fit for discharge home the afternoon of post-op day 1. Diagnosis: Stroke: No - Discharge Data Discharge Date: 04/16/21 Discharge Disposition: Home, Self-Care 01 Condition: Good - Referral to Home Health Primary Care Physician: Mala Gonzalez NP - Patient Summary/Data Operative Procedure(s) Performed: laparoscopic hiatal hernia repair, endoscopic partial fundoplication - Patient Instructions Diet: Full Liquid Diet Activity: As Tolerated, No Lifting Over 10 Pounds Showering/Bathing: August Shower Wound/Incision Care: Keep Operative Site/Wound Site Clean and Dry Notify Provider of: Fever, Increased Pain, Swelling and Redness, Drainage, Nausea and/or Vomiting - Discharge Plan Prescriptions/Med Rec: Ondansetron [Ondansetron ODT] 4 mg PO Q6H PRN #30 tab.rapdis PRN Reason: Nausea oxyCODONE 10 mg PO Q4H PRN #30 tab PRN Reason: Pain Home Medications: Home Meds Escitalopram Oxalate 5 mg PO DAILY 08/26/20 [History] Omeprazole 40 mg PO BIDMEALS 04/03/21 [History] Calcium Carbonate [Tums] 2 tab PO ASDIRECTED 04/15/21 [History] Famotidine [Pepcid] 20 mg PO DAILY 04/15/21 [History] Loratadine [Claritin] 10 mg PO DAILY 04/15/21 [History] Simethicone [Gas Relief] 1 tab PO ASDIRECTED 04/15/21 [History] Ondansetron [Ondansetron ODT] 4 mg PO Q6H PRN #30 tab.rapdis 04/16/21 [Rx] oxyCODONE 10 mg PO Q4H PRN #30 tab 04/16/21 [Rx] - Discharge Summary/Plan Comment DC Time >30 min.: No Total # of Minutes for Discharge Time: 25 Discharge Summary/Plan Comment: follow up in clinic in 2 weeks. Follow post op dietary restrictions. - Patient Data Vitals - Most Recent: Last Vital Signs Temp 36.8 C 04/16/21 10:51 Pulse 74 04/16/21 10:51 Resp 15 04/16/21 10:51 BP 114/78 04/16/21 10:51 Pulse Ox 97 04/16/21 10:51 Weight - Most Recent: 70.307 kg I&O - Last 24 hours: Intake & Output 04/15/21 04/16/21 04/16/21 22:59 06:59 14:59 Intake Total 2260 1050 Output Total 1050 Balance 1210 1050 Lab Results - Last 24 hrs: Laboratory Results - last 24 hr 04/16/21 04/16/21 Range/Units 05:32 05:32 WBC 15.24 H (4.23-9.07) K/mm3 RBC 4.51 L (4.63-6.08) M/mm3 Hgb 13.7 D (13.7-17.5) gm/dl Hct 41.9 (40.1-51.0) % MCV 92.9 H (79.0-92.2) fl MCH 30.4 (25.7-32.2) pg MCHC 32.7 (32.2-35.5) g/dl RDW Std Deviation 42.3 (35.1-43.9) fL Plt Count 329 (163-337) K/mm3 MPV 8.3 L (9.4-12.3) fl Neut % (Auto) 86.5 H (34.0-67.9) % Lymph % (Auto) 7.0 L (21.8-53.1) % Faulk % (Auto) 6.0 (5.3-12.2) % Eos % (Auto) 0.3 L (0.8-7.0) Baso % (Auto) 0.1 (0.1-1.2) % Neut # (Auto) 13.18 H (1.78-5.38) K/mm3 Lymph # (Auto) 1.07 L (1.32-3.57) K/mm3 Faulk # (Auto) 0.92 H (0.30-0.82) K/mm3 Eos # (Auto) 0.04 (0.04-0.54) K/mm3 Baso # (Auto) 0.01 (0.01-0.08) K/mm3 Sodium 140 (136-145) mEq/L Potassium 4.0 (3.5-5.1) mEq/L Chloride 103 (98-107) mEq/L Carbon Dioxide 28 (21-32) mEq/L Anion Gap 13.0 (5-15) BUN 7 (7-18) mg/dL Creatinine 0.9 (0.7-1.3) mg/dL Est Cr Clr Drug Dosing 111.75 mL/min Estimated GFR (MDRD) > 60 (>60) mL/min BUN/Creatinine Ratio 7.8 L (14-18) Glucose 123 H (70-99) mg/dL Calcium 8.6 (8.5-10.1) mg/dL Med Orders - Current: Current Medications Acetaminophen (Acetaminophen 325 Mg Tab) 975 mg PO Q8H [facility] Last Admin: 04/16/21 06:06 Dose: 975 mg Documented by: Benzocaine/Menthol (Benzocaine/Cetylpyridinium/Menthol Lozenge) 1 lozenge MUCMEM Q1H PRN PRN Reason: Sore Throat Last Admin: 04/16/21 11:30 Dose: 1 lozenge Documented by: Citalopram Hydrobromide (Citalopram 10 Mg Tab) 10 mg PO DAILY [facility] Last Admin: 04/16/21 10:47 Dose: Not Given Documented by: Heparin Sodium (Porcine) (Heparin Sodium 5,000 Units/Ml Vial) 5,000 units SUBCUT Q8H [facility] Last Admin: 04/16/21 06:06 Dose: 5,000 units Documented by: Morphine Sulfate (Morphine 2 Mg/Ml Syringe) 1 mg IVPUSH Q4H PRN PRN Reason: Pain (severe 7-10) Ondansetron HCl (Ondansetron 4 Mg Tab.Dis) 4 mg PO Q4H PRN PRN Reason: Nausea/Vomiting Oxycodone HCl (Oxycodone 5 Mg Tab) 10 mg PO Q4H PRN PRN Reason: Pain (moderate 4-6) Last Admin: 04/16/21 10:25 Dose: 10 mg Documented by: Phenol/Menthol (Phenol 1.4% Oral [place] 177 Ml Bottle) 0 ml MUCMEM Q2H PRN PRN Reason: Sore Throat Simethicone (Simethicone 80 Mg Tab.Chew) 80 mg PO Q6H PRN PRN Reason: Gas Last Admin: 04/16/21 10:25 Dose: 80 mg Documented by: Discontinued Medications Acetaminophen (Acetaminophen 325 Mg Tab) 975 mg PO Q8H [facility] Last Admin: 04/15/21 13:01 Dose: Not Given Documented by: Bupivacaine HCl (Bupivacaine 0.5% 30 Ml Sdv) Confirm Administered Dose 30 ml .ROUTE .STK-MED ONE Stop: 04/15/21 07:18 Last Admin: 04/15/21 08:22 Dose: 30 ml Documented by: Cefazolin Sodium (Cefazolin 1 Gm Vial) Confirm Administered Dose 2 gm .ROUTE .STK-MED ONE Stop: 04/15/21 08:13 Dexamethasone (Dexamethasone 4 Mg/Ml 5 Ml Mdv) Confirm Administered Dose 20 mg .ROUTE .STK-MED ONE Stop: 04/15/21 08:29 Docusate Sodium (Docusate Sodium 100 Mg Cap) 100 mg PO ONETIME ONE Stop: 04/16/21 12:16 Fentanyl (Fentanyl 250 Mcg/5 Ml Sdv) Confirm Administered Dose 250 mcg .ROUTE .STK-MED ONE Stop: 04/15/21 07:32 Fentanyl (Fentanyl 100 Mcg/2 Ml Sdv) 100 mcg IVPUSH Q5M PRN PRN Reason: Pain Stop: 04/15/21 12:00 Last Admin: 04/15/21 11:37 Dose: 100 mcg Documented by: Glycopyrrolate (Glycopyrrolate 0.2 Mg/Ml 2 Ml Syringe) Confirm Administered Dose 0.4 mg .ROUTE .STK-MED ONE Stop: 04/15/21 08:36 Glycopyrrolate (Glycopyrrolate 0.2 Mg/Ml 2 Ml Syringe) Confirm Administered Dose 0.4 mg .ROUTE .STK-MED ONE Stop: 04/15/21 10:45 Heparin Sodium (Porcine) (Heparin Sodium 5,000 Units/Ml Vial) 5,000 units SUBCUT Q8H [facility] Last Admin: 04/15/21 13:01 Dose: Not Given Documented by: Hydromorphone HCl (Hydromorphone 0.5 Mg/0.5 Ml Syringe) 0.5 mg IVPUSH Q10M PRN PRN Reason: Pain (severe 7-10) Stop: 04/15/21 12:00 Lactated Ringer's (Ringers, Lactated) 1,000 mls @ 125 mls/hr IV ASDIRECTED [facility] Stop: 04/15/21 23:00 Last Admin: 04/15/21 06:45 Dose: 125 mls/hr Documented by: Lidocaine HCl (Xylocaine-Mpf 1%) Confirm Administered Dose 4 mls @ as directed .ROUTE .STK-MED ONE Stop: 04/15/21 07:31 Lactated Ringer's (Ringers, Lactated) Confirm Administered Dose 1,000 mls @ as directed .ROUTE .STK-MED ONE Stop: 04/15/21 07:55 Lactated Ringer's (Ringers, Lactated) Confirm Administered Dose 1,000 mls @ as directed .ROUTE .STK-MED ONE Stop: 04/15/21 10:11 Lactated Ringer's (Ringers, Lactated) 1,000 mls @ 100 mls/hr IV ASDIRECTED [facility] Last Admin: 04/15/21 23:41 Dose: 100 mls/hr Documented by: Lidocaine/Sodium Bicarbonate (Lidocaine 1%/Sod Bicarbonate In Ns 8.4% 1 Ml Syringe) 0.25 ml IDERM ONETIME PRN PRN Reason: Prior to IV Start Stop: 04/15/21 23:00 Midazolam HCl (Midazolam 1 Mg/Ml 2 Ml Sdv) Confirm Administered Dose 2 mg .ROUTE .STK-MED ONE Stop: 04/15/21 07:32 Neostigmine Methylsulfate (Neostigmine Methylsulfate 5 Mg/5 Ml Syringe) Confirm Administered Dose 5 mg .ROUTE .STK-MED ONE Stop: 04/15/21 10:45 Ondansetron HCl (Ondansetron 4 Mg/2 Ml Sdv) Confirm Administered Dose 8 mg .ROUTE .STK-MED ONE Stop: 04/15/21 07:31 Oxycodone HCl (Oxycodone 5 Mg Tab) 5 mg PO Q4H PRN PRN Reason: Pain (moderate 4-6) Last Admin: 04/16/21 06:28 Dose: 5 mg Documented by: Polyethylene Glycol (Polyethylene Glycol 3350 Powder 17 Gm Packet) 17 gm PO ONETIME ONE Stop: 04/16/21 12:16 Propofol (Propofol 200 Mg/20 Ml Sdv) Confirm Administered Dose 200 mg .ROUTE .STK-MED ONE Stop: 04/15/21 07:31 Sodium Chloride (Sodium Chloride 0.9% 10 Ml Syringe) 10 ml FLUSH 0900,2100 BINU Stop: 04/15/21 23:00 Last Admin: 04/15/21 13:03 Dose: Not Given Documented by: Vecuronium [place] (Vecuronium 10 Mg Vial) Confirm Administered Dose 10 mg .ROUTE .STK-MED ONE Stop: 04/15/21 07:31
== END 2021-04-16 14:33 | disposition home or self-care (01) ==
LOC: JD.SDS 06:38 → JD.MS 10:53
PROVIDERS: ADMIT Surgery; ATTEND Surgery
DX: K21.9 Gastro-esophageal reflux disease without esophagitis (principal); K44.9 Diaphragmatic hernia without obstruction or gangrene; F41.9 Anxiety disorder, unspecified; J45.909 Unspecified asthma, uncomplicated; Z88.0 Allergy status to penicillin; Z79.899 Other long term (current) drug therapy; Z88.1 Allergy status to other antibiotic agents
CPT/HCPCS: 36415; 43210; 43281; 80048; 85025; A9270; J0330; J0690; J1100; J1644; J2250; J2405; J2704; J2710; J3010; J3490; J7120; 00790

== ENCOUNTER 2022-02-05 19:24 | Emergency (ER) | payer BC | END 2022-02-05 21:22 | disposition home or self-care (01) | LOC: JD.ED 19:24 | DX: F41.9 Anxiety disorder, unspecified (principal); Z88.0 Allergy status to penicillin; Z79.899 Other long term (current) drug therapy | CPT/HCPCS: 99281; 99283 ==